=== PATIENT | male | born 2000 | race Caucasian/White ===

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

== ENCOUNTER 2023-04-15 13:07 | Day surgery (SDC) | payer OTHER ==
[~2023-04-15] VITALS: Ht 182.9 cm; Wt 115.7 kg
[~2023-04-15 13:07] MED LIST changes: -FLUT11IN INH; +FLUT12AE6 INH; +MONT-5 PO; +OMEP40CA5 PO; -SING10TA32 PO
[2023-04-15] MEDS ORDERED: propofoL 200 MG/20 ML VIAL As Ordered ONE (14:08)
[2023-04-15] MEDS ORDERED: LIDOCAINE 2% 100MG/5ML SDV (FOR ANES.) As Ordered ONE (14:08)
[2023-04-15] MEDS ORDERED: fentaNYL 100 MCG/2 ML INJECTION As Ordered ONE (14:09)
[2023-04-15 14:29] VITALS: TEMP 97.8
[2023-04-15 14:46] VITALS: BP 150/77; O2SAT 95
== END 2023-04-15 15:00 | disposition home or self-care (01) ==
LOC: M OPP 13:07
PROVIDERS: ATTEND Internal Medicine Gastroenterology
DX: K22.2 Esophageal obstruction (principal); K44.9 Diaphragmatic hernia without obstruction or gangrene; K21.9 Gastro-esophageal reflux disease without esophagitis; Z79.899 Other long term (current) drug therapy
CPT/HCPCS: 43239; 43450; 88305; J3010